=== PATIENT | female | born 1985 | race Caucasian/White ===

== ENCOUNTER → 2016-11-16 | Outpatient (CLI) | payer OTHER | END | disposition home or self-care (01) | LOC: CFH 11:55 | PROVIDERS: ATTEND Family Medicine | DX: J42 Unspecified chronic bronchitis (principal) | CPT/HCPCS: 71020 ==

== ENCOUNTER 2016-12-23 13:18 | Emergency (ER) | payer OTHER ==
[~2016-12-23] VITALS: Ht 172.7 cm; Wt 72.7 kg
[2016-12-23 13:20] VITALS: BP 124/77
[2016-12-23] MEDS ORDERED: DIAZEPAM 5 MG TABLET PO ONE (14:30)
[2016-12-23] MEDS ORDERED: KETOROLAC 30 MG/1 ML IM ONE (14:30)
[2016-12-23] MEDS ORDERED: HYDROcodone/APAP 5/325 TABLET PO ONE (14:30)
[2016-12-23] MEDS ORDERED: HYDROcodone/APAP 5/325 TABLET ONE (14:39)
[2016-12-23] MEDS ORDERED: DIAZEPAM 5 MG TABLET ONE (14:40)
[2016-12-23] MEDS ORDERED: KETOROLAC 30 MG/1 ML ONE (14:40)
== END 2016-12-23 15:53 | disposition home or self-care (01) ==
LOC: ED 14:08
DX: S39.012A Strain of muscle, fascia and tendon of lower back, initial encounter (principal); S29.012A Strain of muscle and tendon of back wall of thorax, initial encounter; V43.52XA Car driver injured in collision with other type car in traffic accident, initial encounter; Y93.89 Activity, other specified; Y99.8 Other external cause status; Y92.89 Other specified places as the place of occurrence of the external cause
CPT/HCPCS: 72072; 72110; 96372; 99284; J1885